=== PATIENT | female | born 1960 | race Caucasian/White ===

== ENCOUNTER 2021-09-17 07:55 | Day surgery (SDC) | payer OTHER, SELFPAY ==
[2021-09-11 10:30] VITALS: BMI 26.8
--- NOTE | 2021-09-16 11:49 | HO.ANESPROP2 ---
Documented by User: Ellen Millard NP 09/16/21 11:49 HPI - Anesthesia Eval Consult details Narrative: 61yo F for Colonoscopy *Multiple Med Allergies* PMFSH Past Medical History Medical History Anxiety Back pain COPD (chronic obstructive pulmonary disease) Depression History of pneumonia Smoker Surgical History Surgical History History of back surgery History of esophagogastroduodenoscopy (EGD) Hx of section Hx of colonoscopy Hx of hysterectomy Hx of shoulder surgery Social History Social History Advance Directives: No Advance Directives Information Provided: Yes Meds Allergies Allergy/AdvReac Type Severity Reaction Status Date / Time codeine [CODEINE] Allergy Severe ANAPHYLAXIS Verified 09/17/21 09:02 hydromorphone [From DILAUDID] Allergy Severe ANAPHYLAXIS Verified 09/17/21 09:02 morphine [Morphine] Allergy Intermediate HIVES Verified 09/17/21 09:03 lamotrigine [From Lamictal] AdvReac Intermediate POSSIBLE Verified 09/17/21 09:03 GENERALIZED EDEMA quetiapine [Quetiapine] AdvReac Intermediate POSSIBLE Verified 09/17/21 09:02 GENERALIZED EDEMA Home Medications Medication Instructions Recorded Confirmed Last Taken Type albuterol sulfate 90 mcg/actuation 1 inh inhalation QID PRN Shortness 09/11/21 09/11/21 Unknown History aerosol inhaler Of Breath Or Wheezing carisoprodol 350 mg tablet (Soma) 350 mg PO QID PRN Back Pain 09/11/21 09/17/21 09/17/21 07:00 History clonazepam 1 mg tablet 1 mg PO TID 09/11/21 09/11/21 Unknown History fluoxetine 10 mg capsule (Prozac) 10 mg PO DAILY 09/11/21 09/11/21 Unknown History fluticasone furoate 200 1 inh inhalation DAILY 09/11/21 09/11/21 Unknown History mcg-vilanterol 25 mcg/dose inhalation powder (Breo Ellipta) hydroxyzine HCl 50 mg tablet 50 mg PO QID PRN Anxiety 09/11/21 09/11/21 Unknown History montelukast 10 mg tablet 10 mg PO BEDTIME 09/11/21 09/11/21 Unknown History (Singulair) ondansetron 8 mg disintegrating mg 09/11/21 Unknown History tablet rosuvastatin 10 mg tablet 10 mg PO DAILY 09/11/21 09/11/21 Unknown History umeclidinium 62.5 mcg/actuation 1 inh inhalation DAILY 09/11/21 09/11/21 Unknown History blister powder for inhalation (Incruse Ellipta) Exam Exam Date and Time: September 16, 2021 1149 Height,Weight and Vital Signs: Height 5 ft 1 in Weight 64.41 kg Assessment and Plan Assessment Anesthesia Assessment: Chart Reviewed Documented by User: Shabana Palomares MD 09/17/21 09:04 PMF Past Medical History Medical History Anxiety Back pain COPD (chronic obstructive pulmonary disease) Depression History of pneumonia Smoker Functional capacity: independent ambulation Patient : No Family History Family history of problems with anesthesia: No Surgical History Surgical History History of back surgery History of esophagogastroduodenoscopy (EGD) Hx of section Hx of colonoscopy Hx of hysterectomy Hx of shoulder surgery History of Problems with Anesthesia: No Social History Social History Advance Directives: No Advance Directives Information Provided: Yes Meds Allergies Allergy/AdvReac Type Severity Reaction Status Date / Time codeine [CODEINE] Allergy Severe ANAPHYLAXIS Verified 09/17/21 09:02 hydromorphone [From DILAUDID] Allergy Severe ANAPHYLAXIS Verified 09/17/21 09:02 morphine [Morphine] Allergy Intermediate HIVES Verified 09/17/21 09:03 lamotrigine [From Lamictal] AdvReac Intermediate POSSIBLE Verified 09/17/21 09:03 GENERALIZED EDEMA quetiapine [Quetiapine] AdvReac Intermediate POSSIBLE Verified 09/17/21 09:02 GENERALIZED EDEMA Home Medications Medication Instructions Recorded Confirmed Last Taken Type albuterol sulfate 90 mcg/actuation 1 inh inhalation QID PRN Shortness 09/11/21 09/11/21 Unknown History aerosol inhaler Of Breath Or Wheezing carisoprodol 350 mg tablet (Soma) 350 mg PO QID PRN Back Pain 09/11/21 09/17/21 09/17/21 07:00 History clonazepam 1 mg tablet 1 mg PO TID 09/11/21 09/11/21 Unknown History fluoxetine 10 mg capsule (Prozac) 10 mg PO DAILY 09/11/21 09/11/21 Unknown History fluticasone furoate 200 1 inh inhalation DAILY 09/11/21 09/11/21 Unknown History mcg-vilanterol 25 mcg/dose inhalation powder (Breo Ellipta) hydroxyzine HCl 50 mg tablet 50 mg PO QID PRN Anxiety 09/11/21 09/11/21 Unknown History montelukast 10 mg tablet 10 mg PO BEDTIME 09/11/21 09/11/21 Unknown History (Singulair) ondansetron 8 mg disintegrating mg 09/11/21 Unknown History tablet rosuvastatin 10 mg tablet 10 mg PO DAILY 09/11/21 09/11/21 Unknown History umeclidinium 62.5 mcg/actuation 1 inh inhalation DAILY 09/11/21 09/11/21 Unknown History blister powder for inhalation (Incruse Ellipta) Exam Airway Mallampati Class: II TM Dist: >3cm Neck ROM: Full Heart: RRR Lungs: CTA Assessment and Plan Final Anesthetic Review Family History of Problems with Anesthesia: No History of Problems with Anesthesia: No ASA Class: II Final Preanesthetic Review: No Changes in Pt Med Stat, Meds/Allgs Chart Reviewed, Consent Obtained/Reviewed and Anes Risks/Benef Reviewed Patient Risk: Low Procedure Risk: Low Anesthetic Plan Anesthetic Plan: MAC: Disposition: Standard PACU
[2021-09-17 09:13] VITALS: BMI 27.0
[2021-09-17 09:17] VITALS: BP 101/57; PULSE 68; RESP 16; TEMP 36.3; O2SAT 95
[2021-09-17] MEDS: Lactated Ringers 1,000 ML 100 ML IVCONT (09:38)
[2021-09-17 10:30] VITALS: BP 105/71; PULSE 74; RESP 16; TEMP 36.4; O2SAT 97
--- NOTE | 2021-09-17 10:37 | PM.OP ---
Brief Operative Note Date of Service: 09/17/21 Pre-op diagnosis: Screening Post-op diagnosis: other (Colon polyps) Procedure: Colonoscopy to the cecum and TI with cold snare polypectomy x 2 Surgeon: Cachorro Daley Anesthesia: MAC Was an Manufacturing Storeperson used for this Procedure?: No Estimated blood loss (mL): 2.0 Pathology: other (A. Polyps at 20cm) Condition: stable Disposition: PACU
[2021-09-17 10:45] VITALS: BP 98/71; PULSE 66; RESP 16; TEMP 36.4; O2SAT 96
--- NOTE | 2021-09-17 21:59 | OP_ITS ---
SURGEON: Cachorro Daley MD INDICATIONS: The patient presents for evaluation of colorectal cancer screening and family history of colon cancer. Full consent obtained from her for this, including risks of bleeding and perforation. PREOPERATIVE DIAGNOSIS: POSTOPERATIVE DIAGNOSIS: PROCEDURE PERFORMED: Colonoscopy to cecum and terminal ileum with cold snare polypectomy x2. ESTIMATED BLOOD LOSS: COMPLICATIONS: ANESTHESIA: Preop medication used, monitored anesthesia care. ASSISTANTS: SPECIMENS: PREOPERATIVE DIAGNOSES: Colorectal cancer screening and family history of colon cancer. POSTOPERATIVE DIAGNOSES: Colon polyps, diverticulosis, and internal hemorrhoids. DESCRIPTION OF PROCEDURE: The patient was placed in the left lateral decubitus position. The digital rectal exam revealed no abnormalities. The Olympus video pediatric colonoscope was entered into the rectum and advanced easily to the cecum. Once in the cecum, I did identify normal-appearing cecal pouch with appendiceal orifice and a normal-appearing ileocecal valve. The terminal ileum was cannulated and appeared normal. The scope withdrawn back in the colon. The entire cecum and ileocecal valve appeared normal. The scope was then slowly withdrawn assessing all mucosal surfaces carefully. Preparation was excellent. At 20 cm were 2 relatively flat approximately 5 or 6 mm polyps, which were both removed completely with cold snare polypectomy and recovered by suction. The polypectomy sites appeared clean, without any sign of residual polyp, nor any significant bleeding. I did not visualize any other polyps, colitis, or angiodysplasia. There was a mild amount of sigmoid diverticulosis. In the rectum, scope was retroflexed visualizing some small internal hemorrhoids, but no other pathology. The rectal mucosa appeared normal. The scope was straightened and withdrawn from the patient. She tolerated the procedure well and was returned to recovery area in stable condition. IMPRESSION: 1. Colon polyps. 2. Diverticulosis. 3. Internal hemorrhoids. PLAN: The results of the pathology will be checked. Even if these are only hyperplastic, I would recommend a followup colonoscopy in 5 years for followup given her family history of colon cancer. She was advised not to use any aspirin and NSAIDs for 1 week. She will otherwise see me on a p.r.n. basis. MD ODELL Saab/MARRY / [id number]
== END 2021-09-17 11:08 | disposition home or self-care (01) ==
PROVIDERS: PCP Internal Medicine; Visit Provider Internal Medicine
PROC: 0DJD8ZZ Inspection of Lower Intestinal Tract, Via Natural or Artificial Opening Endoscopic (ICD-10-PCS; CPT 45378; principal; 2021-09-17 09:20)
DX: Z12.11 Encounter for screening for malignant neoplasm of colon (principal); Z80.0 Family history of malignant neoplasm of digestive organs; D12.5 Benign neoplasm of sigmoid colon; K57.30 Diverticulosis of large intestine without perforation or abscess without bleeding; K64.8 Other hemorrhoids; K58.9 Irritable bowel syndrome, unspecified; R13.10 Dysphagia, unspecified; K22.4 Dyskinesia of esophagus; F32.A Depression, unspecified; F41.1 Generalized anxiety disorder; J44.9 Chronic obstructive pulmonary disease, unspecified; Z79.51 Long term (current) use of inhaled steroids; Z79.899 Other long term (current) drug therapy; Z88.8 Allergy status to other drugs, medicaments and biological substances; F17.210 Nicotine dependence, cigarettes, uncomplicated
CPT/HCPCS: 45385; 88305

== ENCOUNTER 2024-04-05 15:32 | Outpatient (REF) | payer OTHER, SELFPAY ==
--- NOTE | ~2024-04-05 | XR_ITS ---
EXAMINATION: XR CHEST CLINICAL INFORMATION: R05.9 - Cough, unspecified COMPARISON: October 06, 2013. TECHNIQUE: 2 views of the chest were obtained. FINDINGS: Pulmonary reticular nodular pattern with a subtle opacity in the inferior medial right hemithorax. No pneumothorax. No pleural effusion. Cardiomediastinal silhouette is normal size. Multilevel thoracic spondylosis. XR/XR chest 2V IMPRESSION: Concerning acute on chronic airspace disease involving mostly the right middle lobe Electronically signed by: Leo Fan MD 04/05/2024 03:45 PM EST
== END 2024-04-05 15:33 | disposition home or self-care (01) ==
LOC: HO.HMGCX 15:32
PROVIDERS: PCP Internal Medicine; Visit Provider Physician Assistant
DX: R05.9 Cough, unspecified (principal)
CPT/HCPCS: 71046; 99212

== ENCOUNTER → 2024-04-05 15:35 | Outpatient (BNV) | payer OTHER, SELFPAY | PROVIDERS: PCP Internal Medicine; Visit Provider Radiology Diagnostic Radiology | DX: R05.9 Cough, unspecified (principal) | CPT/HCPCS: 71046 ==